=== PATIENT | male | born 1990 | race Caucasian/White ===

== ENCOUNTER 2024-10-11 08:32 | Outpatient (CLI) | payer OTHER, SELFPAY | END 2024-10-11 08:33 | disposition home or self-care (01) | PROVIDERS: PCP Registered Nurse; Visit Provider Registered Nurse | DX: Z13.6 Encounter for screening for cardiovascular disorders (principal); Z13.1 Encounter for screening for diabetes mellitus | CPT/HCPCS: 80061; 82947 ==

== ENCOUNTER 2024-12-05 15:47 | Outpatient (CLI) | payer BC, SELFPAY ==
--- NOTE | 2024-12-05 15:45 | CRLHL7_ITS ---
For Patients: As a result of the Century Cures Act, medical imaging exams and procedure reports are released immediately into your electronic medical record. You may view this report before your referring provider. If you have questions, please contact your health care provider. Indication: Localized swelling, mass and lump, left upper limb Technique: Grayscale and color Doppler ultrasound of the left arm soft tissues performed in the areas of concern. Comparison: 03/05/2024 Findings: There are 2 subcutaneous nodules with slightly increased echotexture. No suspicious internal vascularity or distal acoustic shadowing. These measure 8 x 3 x 7 millimeters and 15 x 8 x 12 millimeters. These do not appear significantly changed. Impression: Stable subcutaneous lipomas. No further follow-up necessary. Dictated by Maynor Arzola MD @ 12/06/2024 4:05:55 PM (Electronically Signed)
== END 2024-12-05 15:48 | disposition home or self-care (01) ==
PROVIDERS: PCP Registered Nurse; Visit Provider Registered Nurse
DX: R22.32 Localized swelling, mass and lump, left upper limb (principal); D17.22 Benign lipomatous neoplasm of skin and subcutaneous tissue of left arm
CPT/HCPCS: 76882